=== PATIENT | female | born 1970 | race African-American/Black ===

== ENCOUNTER 2017-02-15 09:32 | Emergency (ER) | payer OTHER ==
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
[~2017-02-15 09:32] MED LIST: ATARAX PO; IBUPROFEN800 MG PO; LOPRESSOR PO; LORTAB 10/500 T1 TAB PO
== END 2017-02-15 11:27 | disposition home or self-care (01) ==
LOC: CED 09:32 → CFTX 09:32
DX: S90.812A Abrasion, left foot, initial encounter (principal); S80.212A Abrasion, left knee, initial encounter; Z91.040 Latex allergy status; Z88.8 Allergy status to other drugs, medicaments and biological substances; Z23 Encounter for immunization; X50.9XXA Other and unspecified overexertion or strenuous movements or postures, initial encounter; Y92.9 Unspecified place or not applicable
CPT/HCPCS: 29505; 71101; 72100; 73562; 73620; 73630; 84703; 90471; 90715; 99283

== ENCOUNTER 2017-02-18 11:48 | Emergency (ER) | payer OTHER | END 2017-02-18 12:15 | disposition left against medical advice (07) | LOC: CED 11:48 | DX: Z53.21 Procedure and treatment not carried out due to patient leaving prior to being seen by health care provider (principal) ==

== ENCOUNTER 2017-02-19 18:47 | Emergency (ER) | payer OTHER | END 2017-02-19 20:55 | disposition left against medical advice (07) | LOC: CED 18:47 | DX: Z53.21 Procedure and treatment not carried out due to patient leaving prior to being seen by health care provider (principal) ==